=== PATIENT | female | born 1950 | race Caucasian/White ===

== ENCOUNTER 2019-04-30 14:39 | Inpatient (IN) | payer MEDICARE, OTHER ==
[2019-04-30] MEDS: SOD CHLORIDE 0.9% 0 ML IV (15:03)
[2019-04-30 15:19] LABS: WHITE BLOOD COUNT 11.5 10^3/ul (4.8-10.8)
[2019-04-30 15:19] LABS: ABNORMAL IP MESSAGE 1; HEMATOCRIT 19.4 % (37.0-47.0); MEAN CORPUSCULAR HEMOGLOBIN 30.3 pg (29.0-33.0); MEAN CORPUSCULAR VOLUME 91.9 fl (82.0-101.0); PLATELET COUNT 304 10^3/UL (140-415); RED BLOOD COUNT 2.11 10^6/ul (4.20-5.40); RED CELL DISTRIBUTION WIDTH 14.2 % (11.5-14.5)
[2019-04-30] MEDS ORDERED: ACETAMINOPHEN 325 MG TAB PO (15:30)
[2019-04-30] MEDS ORDERED: NACL 0.9% 3 ML SYG IV (15:30)
[2019-04-30] MEDS ORDERED: ONDANSETRON 4 MG INJ IV ×2 (15:30)
[2019-04-30 15:41] LABS: ADD MAN DIFF? YES; ANION GAP 10 (5-13); BLOOD UREA NITROGEN 93 mg/dl (7-20); CARBON DIOXIDE 27 mmol/L (21-31); CHLORIDE 85 mmol/L (97-110); CREATININE 2.38 mg/dl (0.44-1.00); Estimated GFR 20 mL/min (>60); GLUCOSE 96 mg/dl (70-220); HEMOGLOBIN 6.4 g/dl (12.0-16.0); POSITIVE DIFF @See below; POTASSIUM 4.6 mmol/L (3.5-5.1)
[2019-04-30 15:42] LABS: INR 1.79; PROTIME 20.9 Sec (11.9-14.9); PT RATIO 1.6
[2019-04-30 15:43] LABS: PARTIAL THROMBOPLASTIN TIME 60.6 Sec (23.0-35.0)
[2019-04-30 15:56] LABS: SODIUM 122 mmol/L (135-144)
[2019-04-30 16:45] LABS: ANISOCYTOSIS 2+ (0-0); BAND NEUTROPHILS #M 0.2 10^3/ul (0.0-0.6); BAND NEUTROPHILS % (M) 2 % (0-4); EOSINOPHILS % (M) 12 % (0-7); HYPOCHROMASIA 2+ (0-0); LYMPHOCYTES #M 1.1 10^3/ul (0.8-2.9); LYMPHOCYTES % (M) 10 % (15-51); MONOCYTE #M 1.4 10^3/ul (0.3-0.9); MONOCYTES % (M) 13 % (0-11); PLATELET ESTIMATE NORMAL; SEG NEUT #M 7.3 10^3/ul (1.6-7.5); SEGMENTED NEUTROPHILS (M) % 63 % (39-77); SMUDGE%M 4 % (0-0)
[2019-04-30 17:05] LABS: IMMEDIATE SPIN CROSSMATCH 1 1
[2019-04-30] MEDS: PANTOPRAZOLE 40 MG INJ IV (19:38)
[2019-04-30] MEDS: LORAZEPAM 2 MG INJ IV (20:19)
[2019-04-30] MEDS: morphine 2 MG INJ IV (21:39)
[2019-04-30] MEDS: FAMOTIDINE 20 MG INJ IV (21:39)
[2019-05-01] MEDS: morphine 2 MG INJ IV ×3 (01:39→10:19)
[2019-05-01] MEDS ORDERED: LOPERAMIDE HCL 1 MG/5 ML LIQUID (10 ML UD CUP) GTB (03:00)
[2019-05-01] MEDS: LOPERAMIDE HCL 1 MG/5 ML LIQUID (10 ML UD CUP) G-TUBE (04:09)
[2019-05-01 05:47] LABS: ADD MAN DIFF? NO
[2019-05-01 06:03] LABS: BASOPHILS % 0.3 % (0.0-2.0); EOSINOPHILS % 9.4 % (0.0-7.0); HEMATOCRIT 23.8 % (37.0-47.0); HEMOGLOBIN 7.9 g/dl (12.0-16.0); LYMPHOCYTES % 9.3 % (15.0-51.0); MEAN CORPUSCULAR HEMOGLOBIN 30.2 pg (29.0-33.0); MEAN CORPUSCULAR HGB CONC 33.2 g/dl (32.0-37.0); MEAN CORPUSCULAR VOLUME 90.8 fl (82.0-101.0); MEAN PLATELET VOLUME 10.5 fl (7.4-10.4); MONOCYTE # 0.8 10^3/ul (0.3-0.9); NEUTROPHIL # 7.5 10^3/ul (1.6-7.5); NEUTROPHILS % 72.3 % (39.0-77.0); PLATELET COUNT 308 10^3/UL (140-415); RED BLOOD COUNT 2.62 10^6/ul (4.20-5.40); RED CELL DISTRIBUTION WIDTH 15.2 % (11.5-14.5)
[2019-05-01 06:03] LABS: WHITE BLOOD COUNT 10.4 10^3/ul (4.8-10.8)
[2019-05-01 06:23] LABS: ALANINE AMINOTRANSFERASE 11 IU/L (13-69); ALBUMIN 3.6 g/dl (3.3-4.9); ALBUMIN/GLOBULIN RATIO 1.02; ALKALINE PHOSPHATASE 66 IU/L (42-121); ASPARTATE AMINO TRANSFERASE 19 IU/L (15-46); BILIRUBIN,INDIRECT 0.3 mg/dl (0-1.1); BILIRUBIN,TOTAL 0.3 mg/dl (0.2-1.3); BLOOD UREA NITROGEN 84 mg/dl (7-20); CALCIUM 9.3 mg/dl (8.4-10.2); CARBON DIOXIDE 26 mmol/L (21-31); CHLORIDE 97 mmol/L (97-110); CREATININE 1.88 mg/dl (0.44-1.00); Estimated GFR 27 mL/min (>60); GLUCOSE 104 mg/dl (70-220); POTASSIUM 4.5 mmol/L (3.5-5.1); TOTAL PROTEIN 7.1 g/dl (6.1-8.1)
[2019-05-01 08:14] LABS: HEMOGLOBIN A1C 5.3 % (0-5.9)
[2019-05-01] MEDS: FAMOTIDINE 20 MG INJ IV ×2 (10:19→20:37)
[2019-05-01] MEDS ORDERED: LORAZEPAM 0.5 MG TAB JT (14:00)
[2019-05-01] MEDS ORDERED: BISACODYL 10 MG SUPP PR (14:00)
[2019-05-01] MEDS ORDERED: ACETAMINOPHEN 650MG/20.3ML CUP JT (14:00)
[2019-05-01] MEDS ORDERED: ALBUTEROL 0.083% (NEB) 2.5 MG/3 ML AMP NEB (14:00)
[2019-05-01] MEDS: LOPERAMIDE HCL 1 MG/5 ML LIQUID (10 ML UD CUP) GTB (14:04)
[2019-05-01] MEDS: GUAIFENESIN/DM 5ML CUP GTB ×2 (14:04→20:40)
[2019-05-01] MEDS: clonAZEPAM 0.5 MG TAB JT (14:04)
[2019-05-01 17:19] LABS: ANION GAP 8 (5-13); SODIUM 131 mmol/L (135-144)
[2019-05-01] MEDS: SENNA TAB GTB (20:35)
[2019-05-01] MEDS: traZODone 50 MG TAB PO (20:38)
[2019-05-01] MEDS: ATORVASTATIN 40 MG TAB JT (20:38)
[2019-05-01] MEDS: ISOSORBIDE DINITRATE 20 MG TAB JT (20:39)
[2019-05-01] MEDS: HYDROCODONE/APAP (5/325) TAB JT (20:40)
[2019-05-02] MEDS: GUAIFENESIN/DM 5ML CUP GTB ×3 (03:30→13:21)
[2019-05-02] MEDS: HYDROCODONE/APAP (5/325) TAB JT ×3 (03:31→13:21)
[2019-05-02] MEDS: LOPERAMIDE HCL 1 MG/5 ML LIQUID (10 ML UD CUP) PO (03:37)
[2019-05-02] MEDS: VITAMIN B COMPLEX/VIT C CAP JT (08:37)
[2019-05-02] MEDS: MULTIVITAMINS THERAPEUTIC TAB GTB (08:37)
[2019-05-02] MEDS: SENNA TAB GTB (08:37)
[2019-05-02] MEDS: LANSOPRAZOLE 30 MG CAP JT (08:37)
[2019-05-02] MEDS: FAMOTIDINE 20 MG INJ IV (08:38)
[2019-05-02] MEDS: BUMETANIDE 1 MG TAB JT (08:39)
[2019-05-02] MEDS: clonAZEPAM 0.5 MG TAB JT (08:39)
[2019-05-02] MEDS: ISOSORBIDE DINITRATE 20 MG TAB JT ×2 (08:39→13:20)
== END 2019-05-02 14:53 | DRG 812 ==
LOC: 6WM 15:06 → E/R 14:39
PROVIDERS: Pediatrics
PROC: 30233N1 Transfusion of Nonautologous Red Blood Cells into Peripheral Vein, Percutaneous Approach (ICD-10-PCS; principal; 2019-04-30)
PROC: 5A1945Z Respiratory Ventilation, 24-96 Consecutive Hours (ICD-10-PCS; 2019-04-30)
DX: D64.9 Anemia, unspecified (principal); J96.10 Chronic respiratory failure, unspecified whether with hypoxia or hypercapnia; Z99.11 Dependence on respirator [ventilator] status; I10 Essential (primary) hypertension; J44.9 Chronic obstructive pulmonary disease, unspecified; Z93.0 Tracheostomy status; Z93.1 Gastrostomy status; I25.10 Atherosclerotic heart disease of native coronary artery without angina pectoris; E78.00 Pure hypercholesterolemia, unspecified; N28.9 Disorder of kidney and ureter, unspecified; Z87.891 Personal history of nicotine dependence
CPT/HCPCS: 36430; 71045; 80048; 80053; 83036; 85025; 85610; 85730; 86850; 86900; 86901; 86920; 93005; 94002; 94003; 99285-25

== ENCOUNTER 2019-05-07 23:01 | Inpatient (IN) | payer MEDICARE, OTHER ==
[2019-05-07 23:51] LABS: ADD MAN DIFF? NO; BASOPHILS % 0.3 % (0.0-2.0); EOSINOPHILS # 1.3 10^3/ul (0.0-0.5); EOSINOPHILS % 9.9 % (0.0-7.0); HEMATOCRIT 23.9 % (37.0-47.0); HEMOGLOBIN 7.6 g/dl (12.0-16.0); LYMPHOCYTES # 1.6 10^3/ul (0.8-2.9); LYMPHOCYTES % 11.7 % (15.0-51.0); MEAN CORPUSCULAR HEMOGLOBIN 29.8 pg (29.0-33.0); MEAN CORPUSCULAR HGB CONC 31.8 g/dl (32.0-37.0); MEAN CORPUSCULAR VOLUME 93.7 fl (82.0-101.0); MEAN PLATELET VOLUME 9.6 fl (7.4-10.4); MONOCYTES % 7.5 % (0.0-11.0); NEUTROPHIL # 9.4 10^3/ul (1.6-7.5); PLATELET COUNT 390 10^3/UL (140-415); RED BLOOD COUNT 2.55 10^6/ul (4.20-5.40); RED CELL DISTRIBUTION WIDTH 14.7 % (11.5-14.5)
[2019-05-07 23:51] LABS: WHITE BLOOD COUNT 13.4 10^3/ul (4.8-10.8)
[2019-05-08 00:12] LABS: ALANINE AMINOTRANSFERASE 36 IU/L (13-69); ALBUMIN/GLOBULIN RATIO 1.08; ALKALINE PHOSPHATASE 112 IU/L (42-121); ANION GAP 10 (5-13); ASPARTATE AMINO TRANSFERASE 30 IU/L (15-46); BILIRUBIN,INDIRECT 0.3 mg/dl (0-1.1); BILIRUBIN,TOTAL 0.3 mg/dl (0.2-1.3); BLOOD UREA NITROGEN 63 mg/dl (7-20); CALCIUM 9.5 mg/dl (8.4-10.2); CARBON DIOXIDE 29 mmol/L (21-31); CHLORIDE 96 mmol/L (97-110); CREATININE 1.69 mg/dl (0.44-1.00); Estimated GFR 30 mL/min (>60); GLUCOSE 93 mg/dl (70-220); POTASSIUM 4.5 mmol/L (3.5-5.1); SODIUM 135 mmol/L (135-144); TOTAL PROTEIN 7.7 g/dl (6.1-8.1)
[2019-05-08 00:14] LABS: INR 1.39; PROTIME 17.2 Sec (11.9-14.9); PT RATIO 1.3
[2019-05-08 00:15] LABS: PARTIAL THROMBOPLASTIN TIME 44.5 Sec (23.0-35.0)
[2019-05-08 00:23] LABS: TROPONIN-I < 0.012 ng/ml (0.000-0.120)
[2019-05-08] MEDS: morphine 4 MG/ML VIAL IV (03:32)
[2019-05-08] MEDS: ONDANSETRON 4 MG INJ IV (03:32)
[2019-05-08] MEDS ORDERED: ONDANSETRON 4 MG INJ IV (04:00)
[2019-05-08] MEDS ORDERED: ACETAMINOPHEN 325 MG TAB PO (04:00)
[2019-05-08 11:34] LABS: ADD MAN DIFF? NO
[2019-05-08 11:35] LABS: WHITE BLOOD COUNT 13.9 10^3/ul (4.8-10.8)
[2019-05-08 11:35] LABS: BASOPHILS % 0.1 % (0.0-2.0); EOSINOPHILS # 1.3 10^3/ul (0.0-0.5); EOSINOPHILS % 9.3 % (0.0-7.0); HEMATOCRIT 24.5 % (37.0-47.0); HEMOGLOBIN 7.5 g/dl (12.0-16.0); LYMPHOCYTES # 1.6 10^3/ul (0.8-2.9); LYMPHOCYTES % 11.2 % (15.0-51.0); MEAN CORPUSCULAR HEMOGLOBIN 29.1 pg (29.0-33.0); MEAN CORPUSCULAR HGB CONC 30.6 g/dl (32.0-37.0); MEAN PLATELET VOLUME 10.2 fl (7.4-10.4); MONOCYTES % 7.2 % (0.0-11.0); NEUTROPHIL # 9.9 10^3/ul (1.6-7.5); NEUTROPHILS % 71.6 % (39.0-77.0); PLATELET COUNT 396 10^3/UL (140-415); RED BLOOD COUNT 2.58 10^6/ul (4.20-5.40); RED CELL DISTRIBUTION WIDTH 14.9 % (11.5-14.5)
[2019-05-08 11:56] LABS: ANION GAP 9 (5-13); BLOOD UREA NITROGEN 58 mg/dl (7-20); CALCIUM 9.6 mg/dl (8.4-10.2); CARBON DIOXIDE 32 mmol/L (21-31); CHLORIDE 97 mmol/L (97-110); CREATININE 1.86 mg/dl (0.44-1.00); Estimated GFR 27 mL/min (>60); GLUCOSE 125 mg/dl (70-220); POTASSIUM 3.9 mmol/L (3.5-5.1); SODIUM 138 mmol/L (135-144)
[2019-05-08 12:54] LABS: OCCULT BLOOD STOOL POSITIVE (NEGATIVE)
[2019-05-08] MEDS: GUAIFENESIN 20 MG/ML 5ML CUP PO (13:58)
[2019-05-08] MEDS ORDERED: ALBUTEROL 0.083% (NEB) 2.5 MG/3 ML AMP NEB (15:30)
[2019-05-08] MEDS ORDERED: BISACODYL 10 MG SUPP PR (15:30)
[2019-05-08] MEDS ORDERED: LOPERAMIDE 2 MG CAP GTB (15:30)
[2019-05-08] MEDS ORDERED: ACETAMINOPHEN 650MG/20.3ML CUP GTB (15:30)
[2019-05-08] MEDS: MULTIVITAMINS THERAPEUTIC TAB GTB (16:04)
[2019-05-08] MEDS: HYDROCODONE/APAP (5/325) TAB GTB ×2 (16:04→21:45)
[2019-05-08] MEDS: BUMETANIDE 1 MG TAB GTB (17:12)
[2019-05-08] MEDS: clonAZEPAM 0.5 MG TAB GTB (18:24)
[2019-05-08] MEDS: SENNA TAB GTB (21:00)
[2019-05-08] MEDS: traZODone 50 MG TAB PO (21:42)
[2019-05-08] MEDS: ATORVASTATIN 40 MG TAB GTB (21:42)
[2019-05-08] MEDS: GUAIFENESIN/DM 5ML CUP GTB (21:51)
[2019-05-08] MEDS: ISOSORBIDE DINITRATE 20 MG TAB GTB (21:53)
[2019-05-09] MEDS: LOPERAMIDE HCL 1 MG/5 ML LIQUID (10 ML UD CUP) GTB (03:07)
[2019-05-09] MEDS: HYDROCODONE/APAP (5/325) TAB GTB ×6 (03:08→23:18)
[2019-05-09] MEDS: GUAIFENESIN/DM 5ML CUP GTB ×5 (04:20→21:00)
[2019-05-09 06:06] LABS: ADD MAN DIFF? NO
[2019-05-09 06:15] LABS: BASOPHILS % 0.4 % (0.0-2.0); EOSINOPHILS # 1.3 10^3/ul (0.0-0.5); EOSINOPHILS % 11.9 % (0.0-7.0); HEMATOCRIT 22.4 % (37.0-47.0); LYMPHOCYTES # 1.5 10^3/ul (0.8-2.9); MEAN CORPUSCULAR HEMOGLOBIN 29.5 pg (29.0-33.0); MEAN CORPUSCULAR HGB CONC 31.3 g/dl (32.0-37.0); MEAN CORPUSCULAR VOLUME 94.5 fl (82.0-101.0); MEAN PLATELET VOLUME 9.5 fl (7.4-10.4); MONOCYTES % 8.5 % (0.0-11.0); NEUTROPHIL # 7.4 10^3/ul (1.6-7.5); NEUTROPHILS % 65.5 % (39.0-77.0); PLATELET COUNT 375 10^3/UL (140-415); RED BLOOD COUNT 2.37 10^6/ul (4.20-5.40); RED CELL DISTRIBUTION WIDTH 14.9 % (11.5-14.5)
[2019-05-09 06:15] LABS: WHITE BLOOD COUNT 11.2 10^3/ul (4.8-10.8)
[2019-05-09] MEDS: [UNRECOGNIZED DRUG - REMARK] XX ×3 (06:30→21:10)
[2019-05-09 06:36] LABS: ANION GAP 8 (5-13); BLOOD UREA NITROGEN 65 mg/dl (7-20); CALCIUM 9.6 mg/dl (8.4-10.2); CARBON DIOXIDE 32 mmol/L (21-31); CHLORIDE 96 mmol/L (97-110); CREATININE 1.95 mg/dl (0.44-1.00); Estimated GFR 25 mL/min (>60); GLUCOSE 118 mg/dl (70-220); POTASSIUM 4.4 mmol/L (3.5-5.1); SODIUM 136 mmol/L (135-144)
[2019-05-09] MEDS: VITAMIN B COMPLEX/VIT C CAP GTB (08:55)
[2019-05-09] MEDS: SENNA TAB GTB ×2 (08:55→20:53)
[2019-05-09] MEDS: LANSOPRAZOLE 30 MG CAP GTB (08:55)
[2019-05-09] MEDS: MULTIVITAMINS THERAPEUTIC TAB GTB (08:55)
[2019-05-09] MEDS: BUMETANIDE 1 MG TAB GTB (08:56)
[2019-05-09] MEDS: clonAZEPAM 0.5 MG TAB GTB ×2 (08:56→21:00)
[2019-05-09] MEDS: ISOSORBIDE DINITRATE 20 MG TAB GTB ×3 (08:56→20:53)
[2019-05-09] MEDS: SOD CHLORIDE 0.9% 250 ML IV* (09:29)
[2019-05-09 11:00] LABS: IMMEDIATE SPIN CROSSMATCH 1 1
[2019-05-09] MEDS: ATORVASTATIN 40 MG TAB GTB (20:53)
[2019-05-09] MEDS: traZODone 50 MG TAB PO (20:54)
[2019-05-10] MEDS: LORAZEPAM 0.5 MG TAB GTB (00:37)
[2019-05-10] MEDS: GUAIFENESIN/DM 5ML CUP GTB ×4 (01:41→20:21)
[2019-05-10] MEDS: LOPERAMIDE HCL 1 MG/5 ML LIQUID (10 ML UD CUP) GTB (03:23)
[2019-05-10] MEDS: HYDROCODONE/APAP (5/325) TAB GTB ×4 (03:24→20:22)
[2019-05-10] MEDS: VITAMIN B COMPLEX/VIT C CAP GTB (09:00)
[2019-05-10] MEDS: MULTIVITAMINS THERAPEUTIC TAB GTB (09:00)
[2019-05-10] MEDS: SENNA TAB GTB ×2 (09:00→20:22)
[2019-05-10] MEDS: LANSOPRAZOLE 30 MG CAP GTB (09:00)
[2019-05-10] MEDS: BUMETANIDE 1 MG TAB GTB (09:00)
[2019-05-10] MEDS: ISOSORBIDE DINITRATE 20 MG TAB GTB ×3 (09:00→20:22)
[2019-05-10 11:46] LABS: ADD MAN DIFF? NO
[2019-05-10 11:48] LABS: BASOPHILS % 0.3 % (0.0-2.0); EOSINOPHILS # 1.6 10^3/ul (0.0-0.5); EOSINOPHILS % 13.1 % (0.0-7.0); HEMOGLOBIN 8.9 g/dl (12.0-16.0); LYMPHOCYTES # 1.8 10^3/ul (0.8-2.9); LYMPHOCYTES % 14.6 % (15.0-51.0); MEAN CORPUSCULAR HEMOGLOBIN 29.7 pg (29.0-33.0); MEAN CORPUSCULAR HGB CONC 31.8 g/dl (32.0-37.0); MEAN CORPUSCULAR VOLUME 93.3 fl (82.0-101.0); MONOCYTES % 8.3 % (0.0-11.0); NEUTROPHIL # 7.6 10^3/ul (1.6-7.5); NEUTROPHILS % 63.3 % (39.0-77.0); PLATELET COUNT 398 10^3/UL (140-415)
[2019-05-10 12:07] LABS: ANION GAP 8 (5-13); BLOOD UREA NITROGEN 53 mg/dl (7-20); CARBON DIOXIDE 32 mmol/L (21-31); CHLORIDE 96 mmol/L (97-110); CREATININE 1.53 mg/dl (0.44-1.00); Estimated GFR 34 mL/min (>60); GLUCOSE 92 mg/dl (70-220); POTASSIUM 4.4 mmol/L (3.5-5.1); SODIUM 136 mmol/L (135-144)
[2019-05-10] MEDS: traZODone 50 MG TAB PO (20:23)
[2019-05-10] MEDS: ATORVASTATIN 40 MG TAB GTB (20:23)
[2019-05-11] MEDS: HYDROCODONE/APAP (5/325) TAB GTB ×6 (00:45→21:38)
[2019-05-11] MEDS: GUAIFENESIN/DM 5ML CUP GTB ×6 (00:45→21:39)
[2019-05-11] MEDS: SENNA TAB GTB (09:00)
[2019-05-11] MEDS: BUMETANIDE 1 MG TAB GTB (09:02)
[2019-05-11] MEDS: VITAMIN B COMPLEX/VIT C CAP GTB (09:02)
[2019-05-11] MEDS: LANSOPRAZOLE 30 MG CAP GTB (09:02)
[2019-05-11] MEDS: MULTIVITAMINS THERAPEUTIC TAB GTB (09:02)
[2019-05-11] MEDS: ISOSORBIDE DINITRATE 20 MG TAB GTB ×3 (09:03→21:38)
[2019-05-11] MEDS: LOPERAMIDE HCL 1 MG/5 ML LIQUID (10 ML UD CUP) GTB ×2 (09:37→21:39)
[2019-05-11] MEDS: ATORVASTATIN 40 MG TAB GTB (21:37)
[2019-05-11] MEDS: traZODone 50 MG TAB PO (21:38)
[2019-05-12] MEDS: HYDROCODONE/APAP (5/325) TAB GTB ×4 (01:54→14:26)
[2019-05-12] MEDS: GUAIFENESIN/DM 5ML CUP GTB ×4 (01:54→14:25)
[2019-05-12] MEDS: VITAMIN B COMPLEX/VIT C CAP GTB (10:22)
[2019-05-12] MEDS: ISOSORBIDE DINITRATE 20 MG TAB GTB ×2 (10:23→14:26)
[2019-05-12] MEDS: LANSOPRAZOLE 30 MG CAP GTB (10:23)
[2019-05-12] MEDS: BUMETANIDE 1 MG TAB GTB (10:23)
[2019-05-12] MEDS: MULTIVITAMINS THERAPEUTIC TAB GTB (10:24)
[2019-05-12] MEDS: PROPOFOL 40 ML (10:33)
[2019-05-12] MEDS: LIDOCAINE 2% (SDV) 5 ML INJ (10:33)
[2019-05-12 11:19] LABS: ADD MAN DIFF? NO
[2019-05-12 11:25] LABS: BASOPHIL # 0.1 10^3/ul (0.0-0.1); BASOPHILS % 0.5 % (0.0-2.0); EOSINOPHILS # 0.9 10^3/ul (0.0-0.5); EOSINOPHILS % 8.1 % (0.0-7.0); HEMATOCRIT 29.2 % (37.0-47.0); LYMPHOCYTES # 1.8 10^3/ul (0.8-2.9); MEAN CORPUSCULAR HEMOGLOBIN 29.1 pg (29.0-33.0); MEAN CORPUSCULAR HGB CONC 30.8 g/dl (32.0-37.0); MEAN CORPUSCULAR VOLUME 94.5 fl (82.0-101.0); MEAN PLATELET VOLUME 10.4 fl (7.4-10.4); MONOCYTE # 1.1 10^3/ul (0.3-0.9); MONOCYTES % 10.4 % (0.0-11.0); NEUTROPHIL # 7.1 10^3/ul (1.6-7.5); NEUTROPHILS % 64.5 % (39.0-77.0); PLATELET COUNT 375 10^3/UL (140-415); RED BLOOD COUNT 3.09 10^6/ul (4.20-5.40); RED CELL DISTRIBUTION WIDTH 14.6 % (11.5-14.5)
[2019-05-12 11:45] LABS: ANION GAP 3 (5-13); BLOOD UREA NITROGEN 46 mg/dl (7-20); CALCIUM 9.9 mg/dl (8.4-10.2); CARBON DIOXIDE 34 mmol/L (21-31); CHLORIDE 99 mmol/L (97-110); CREATININE 1.46 mg/dl (0.44-1.00); Estimated GFR 36 mL/min (>60); GLUCOSE 104 mg/dl (70-220); POTASSIUM 4.5 mmol/L (3.5-5.1); SODIUM 136 mmol/L (135-144)
== END 2019-05-12 17:20 | DRG 348 ==
LOC: E/R 23:01 → TEL 05-08 03:33
PROC: 0W3P7ZZ Control Bleeding in Gastrointestinal Tract, Via Natural or Artificial Opening (ICD-10-PCS; principal; 2019-05-10 13:00)
PROC: 0DB68ZX Excision of Stomach, Via Natural or Artificial Opening Endoscopic, Diagnostic (ICD-10-PCS; 2019-05-10 13:00)
PROC: 30233N1 Transfusion of Nonautologous Red Blood Cells into Peripheral Vein, Percutaneous Approach (ICD-10-PCS; 2019-05-10 13:00)
DX: K31.811 Angiodysplasia of stomach and duodenum with bleeding (principal); I50.32 Chronic diastolic (congestive) heart failure; J96.10 Chronic respiratory failure, unspecified whether with hypoxia or hypercapnia; I25.10 Atherosclerotic heart disease of native coronary artery without angina pectoris; D64.9 Anemia, unspecified; J44.9 Chronic obstructive pulmonary disease, unspecified; R13.10 Dysphagia, unspecified; I11.0 Hypertensive heart disease with heart failure; F20.9 Schizophrenia, unspecified; Z93.1 Gastrostomy status; K25.9 Gastric ulcer, unspecified as acute or chronic, without hemorrhage or perforation
CPT/HCPCS: 36415; 36430; 71045; 74176; 80048; 80053; 82270; 84484; 85025; 85610; 85730; 86850; 86900; 86901; 86920; 87081; 88305; 92610; 93005; 94002; 94003; 96374; 96375; 99285-25